=== PATIENT | female | born 1945 ===

== ENCOUNTER → 2020-02-02 | Outpatient (CLI) | payer BC, MEDICARE ==
[~2020-02-02] MED LIST: VISIPAQUE 320 MG/ML, 150ML BOTTLE ONE
== END | disposition home or self-care (01) ==
LOC: CVU 09:30
PROVIDERS: ATTEND Internal Medicine Cardiovascular Disease
DX: Z01.810 Encounter for preprocedural cardiovascular examination (principal); I35.0 Nonrheumatic aortic (valve) stenosis; I65.29 Occlusion and stenosis of unspecified carotid artery; R06.02 Shortness of breath; R91.8 Other nonspecific abnormal finding of lung field; I70.0 Atherosclerosis of aorta; Z87.891 Personal history of nicotine dependence
CPT/HCPCS: 71275; 74174; 93880; Q9967

== ENCOUNTER 2020-02-08 11:42 | Inpatient (IN) | payer BC, MEDICARE ==
[~2020-02-08] VITALS: Ht 157.5 cm; Wt 55.0 kg
[2020-02-22] MEDS ORDERED: SODIUM CHLORIDE 0.9% 1,000 ML IV ONE (10:23)
[2020-02-22] MEDS ORDERED: ASPI-496 PO (10:30)
[2020-02-22] MEDS ORDERED: ATOR10TA PO (10:30)
[2020-02-22] MEDS ORDERED: ONDANSETRON 2MG/ML, 2ML IVPush PRN (10:30)
[2020-02-22 10:33] VITALS: BP 147/71
[2020-02-22 10:47] LABS: BASOPHILS # (AUTO) 0.05 x10^3/uL (0-0.1); BASOPHILS % (AUTO) 1 % (0-1); EOSINOPHILS # (AUTO) 0.13 x10^3/uL (0-0.4); EOSINOPHILS % (AUTO) 3 % (1-7); LYMPHOCYTES # (AUTO) 1.46 x10^3/uL (1-3.4); LYMPHOCYTES % (AUTO) 30 % (22-44); MD NO; MEAN CORPUSCULAR HEMOGLOBIN 30.1 pg (27.0-34.8); MEAN CORPUSCULAR HGB CONC 33.4 g/dL (32.4-35.8); MEAN PLATELET VOLUME 9.8 fL (7.4-10.4); MONOCYTES # (AUTO) 0.42 x10^3/uL (0.2-0.8); MONOCYTES % (AUTO) 9 % (2-9); NEUTROPHILS # (AUTO) 2.87 x10^3/uL (1.8-6.8); NEUTROPHILS % (AUTO) 58 % (42-75); PLATELET COUNT 186 x10^3/uL (130-400); RED CELL DISTRIBUTION WIDTH 15.2 % (9.6-15.2)
[2020-02-22] MEDS ORDERED: [UNRECOGNIZED DRUG - REMARK] PO (10:50)
[2020-02-22] MEDS ORDERED: Iron PO (10:50)
[2020-02-22 10:56] LABS: ALANINE AMINOTRANSFERASE 15 U/L (12-78); ALBUMIN 3.7 g/dL (3.4-5.0); ANION GAP 10 mmol/L (5-15); CALCIUM 8.9 mg/dL (8.5-10.1); CHLORIDE 111 mmol/L (98-107); CREATININE 1.34 mg/dL (0.55-1.02); INTERNATIONAL NORMALIZED RATIO 0.93 (0.93-1.1); PROTHROMBIN TIME 9.9 Seconds (9.6-11.5)
[2020-02-22 10:58] LABS: ALKALINE PHOSPHATASE 68 U/L (45-117); BILIRUBIN,TOTAL 0.4 mg/dL (0.2-1.0); TOTAL PROTEIN 8.8 g/dL (6.4-8.2)
[2020-02-22] MEDS ORDERED: PLEASE ENTER ALLERGIES MC SCH (11:00)
[2020-02-22] MEDS ORDERED: PLEASE ENTER HEIGHT AND WEIGHT MC SCH (11:00)
[2020-02-22] MEDS ORDERED: FENTANYL PF 250 MCG/5ML ONE (11:08)
[2020-02-22] MEDS ORDERED: CEFAZOLIN 1,000 MG ONE (11:44)
[2020-02-22] MEDS ORDERED: ROCURONIUM 10 MG/ML,10ML ONE (11:44)
[2020-02-22] MEDS ORDERED: SUCCINYLCHOLINE 20 MG/ML, 10ML ONE (11:44)
[2020-02-22] MEDS ORDERED: ONDANSETRON 2MG/ML, 2ML ONE ×2 (11:44→12:10)
[2020-02-22] MEDS ORDERED: PROTAMINE SULFATE 10 MG/ML, 5ML ONE (11:57)
[2020-02-22] MEDS ORDERED: HEPARIN 1,000 UNITS/ML, 10ML ONE (12:10)
[2020-02-22] MEDS ORDERED: PROPOFOL 10 MG/ML, 20ML ONE (12:10)
[2020-02-22] MEDS ORDERED: CLOPIDOGREL 300 MG TABLET PO ONE (13:00)
[2020-02-22] MEDS ORDERED: HYDROcodone/APAP 5/325 TABLET PO PRN (13:00)
[2020-02-22] MEDS ORDERED: hydrALAzine 20 MG/ML, 1ML IVPush PRN (13:00)
[2020-02-22] MEDS ORDERED: LABETALOL 20 MG/4 ML IVPush PRN (13:00)
[2020-02-22] MEDS ORDERED: CLOPIDOGREL 300 MG TABLET ONE (13:47)
[2020-02-22] MEDS ORDERED: hydrALAzine 20 MG/ML, 1ML ONE (13:47)
[2020-02-22] MEDS ORDERED: LABETALOL 5MG/ML 40ML VIAL IVPush PRN (15:00)
[2020-02-22 18:36] VITALS: BP 101/62
[2020-02-22] MEDS ORDERED: ATORVASTATIN 10 MG TABLET PO SCH (21:00)
[2020-02-23 00:12] VITALS: BP 115/65
[2020-02-23] MEDS: ACETAMINOPHEN 325 MG TABLET PO PRN ×2 (04:08→13:05)
[2020-02-23] MEDS ORDERED: PANTOPRAZOLE 40MG TABLET PO SCH (06:00)
[2020-02-23 06:14] LABS: ANION GAP 11 mmol/L (5-15); CALCIUM 8.1 mg/dL (8.5-10.1); CHLORIDE 111 mmol/L (98-107)
[2020-02-23 06:17] LABS: BASOPHILS # (AUTO) 0.02 x10^3/uL (0-0.1); BASOPHILS % (AUTO) 0 % (0-1); EOSINOPHILS # (AUTO) 0.03 x10^3/uL (0-0.4); EOSINOPHILS % (AUTO) 0 % (1-7); LYMPHOCYTES % (AUTO) 14 % (22-44); MD NO; MEAN CORPUSCULAR HEMOGLOBIN 30.1 pg (27.0-34.8); MEAN CORPUSCULAR HGB CONC 33.2 g/dL (32.4-35.8); MEAN CORPUSCULAR VOLUME 90.5 fL (80-100); MEAN PLATELET VOLUME 10.2 fL (7.4-10.4); MONOCYTES % (AUTO) 9 % (2-9); NEUTROPHILS % (AUTO) 77 % (42-75); PLATELET COUNT 132 x10^3/uL (130-400); RED BLOOD COUNT 2.84 x10^6/uL (3.82-5.3); RED CELL DISTRIBUTION WIDTH 15.8 % (9.6-15.2)
[2020-02-23 07:49] VITALS: BP 96/56
[2020-02-23] MEDS ORDERED: CLOPIDOGREL 75 MG TABLET PO SCH (09:00)
[2020-02-23] MEDS ORDERED: CLOP75TA PO (10:57)
[2020-02-23] MEDS ORDERED: PANT40TA5 PO (10:57)
[2020-02-23 12:52] VITALS: BP 115/68
[2020-02-23 13:11] VITALS: BP 115/68
== END 2020-02-23 14:11 | disposition home or self-care (01) | DRG 266 ==
LOC: ORIP 02-22 10:02 → 5SO 02-22 14:28 → DCLOUNGE 02-23 13:50
PROVIDERS: ADMIT Internal Medicine Cardiovascular Disease; ATTEND Internal Medicine Cardiovascular Disease
PROC: B245ZZ4 Ultrasonography of Left Heart, Transesophageal (ICD-10-PCS; 2020-02-22)
PROC: B3101ZZ Fluoroscopy of Thoracic Aorta using Low Osmolar Contrast (ICD-10-PCS; 2020-02-22)
PROC: 02RF38Z Replacement of Aortic Valve with Zooplastic Tissue, Percutaneous Approach (ICD-10-PCS; principal; 2020-02-22 12:00)
DX: I35.0 Nonrheumatic aortic (valve) stenosis (principal); Z00.6 Encounter for examination for normal comparison and control in clinical research program; I50.33 Acute on chronic diastolic (congestive) heart failure; E78.5 Hyperlipidemia, unspecified; I07.1 Rheumatic tricuspid insufficiency
CPT/HCPCS: 33361; 36415; 76937; 80048; 80053; 85025; 85347; 85610; 85730; 86850; 86900; 86923; 92986; 93005; 93306; 93312; 93321; 93325; 93355; C1760; C1769; C1894; G0378; J0690; J1644; J2405; J2704; J2720; J3010; J0330; J0360; Q9967; U0001-CS

== ENCOUNTER → 2020-03-28 | Outpatient (CLI) | payer BC, MEDICARE, OTHER ==
[~2020-03-28] MED LIST changes: +ASPI-496 PO; +ATOR10TA PO; +CLOP75TA PO; +Iron PO; +NS + 20MEQ KCL 1,000 ML IV ONE; +PANT40TA5 PO; -VISIPAQUE 320 MG/ML, 150ML BOTTLE ONE; +[UNRECOGNIZED DRUG - REMARK] PO
== END | disposition home or self-care (01) ==
LOC: CVU 10:32
PROVIDERS: ATTEND Internal Medicine Cardiovascular Disease
DX: I35.0 Nonrheumatic aortic (valve) stenosis (principal); R06.02 Shortness of breath; I65.29 Occlusion and stenosis of unspecified carotid artery
CPT/HCPCS: 93306; 93356

== ENCOUNTER → 2021-02-13 | Outpatient (CLI) | payer BC, OTHER ==
[~2021-02-13] MED LIST changes: -NS + 20MEQ KCL 1,000 ML IV ONE; -PANT40TA5 PO; +PANT40TA6 PO
== END | disposition home or self-care (01) ==
LOC: CVU 11:54
PROVIDERS: ATTEND Internal Medicine Cardiovascular Disease
DX: Z01.810 Encounter for preprocedural cardiovascular examination (principal); I05.1 Rheumatic mitral insufficiency; R06.02 Shortness of breath; I65.29 Occlusion and stenosis of unspecified carotid artery
CPT/HCPCS: 93306